=== PATIENT | male | born 1970 | race Caucasian/White ===

== ENCOUNTER 2024-01-24 16:35 | Emergency (ER) | payer OTHER ==
[~2024-01-24] VITALS: Ht 177.8 cm; Wt 91.0 kg
[2024-01-24 17:00] VITALS: PULSE 90; RESP 12; O2SAT 99
[2024-01-24 18:07] LABS: Urine Bacteria None Seen /hpf (None Seen)
[2024-01-24 18:18] LABS: Urine Blood Negative /uL (Negative); Urine Clarity Clear (Clear); Urine Color Light-Yellow (Yellow); Urine Protein, UAD TRACE (Negative); Urine Specific Gravity 1.021 (1.001-1.035); Urine Urobilinogen Normal (Negative); Urine WBC <1 /hpf (0 - 3)
[2024-01-24 19:33] LABS: Basophils # (auto) 0.1 10 ^3/uL (0-0.2); Basophils % (auto) 0.4 % (0.0-2.0); Eosinophils # (auto) 0 10 ^3/uL (0-0.8); Eosinophils % (auto) 0.3 % (0.0-7.0); Hematocrit 47.5 % (41.0-53.0); Hemoglobin 16.1 g/dL (13.5-17.5); Lymphocytes # (auto) 1.5 10 ^3/uL (0.4-5.4); Mean Corpuscular Hgb Conc. 33.9 g/dL (32.0-36.0); Mean Corpuscular Volume 85.7 fL (80.0-100.0); Monocytes % (auto) 5.9 % (0.0-12.0); Neutrophils # (auto) 14.1 10 ^3/uL (1.6-8.6); Neutrophils % (auto) 84.4 % (37.0-80.0); Nucleated Red Blood Cells % 0.1 %; Red Blood Cells 5.54 10^6/uL (4.5-5.90); Red Cell Distribution Width 13.4 % (11.8-14.3); White Blood Cell 16.7 10^3/uL (4.4-10.8)
[2024-01-24] MEDS: LORazepam 2MG/ML-1ML VIAL ONE (19:44)
[2024-01-24 19:48] LABS: Chloride 104 mmol/L (98-107); Potassium 4.1 mmol/L (3.5-5.1); Sodium 139 mmol/L (136-145)
[2024-01-24 19:49] LABS: Anion Gap 7 (5-15); Carbon Dioxide 28 mmol/L (20-30)
[2024-01-24 19:50] VITALS: PULSE 79; RESP 10; TEMP 98.4; O2SAT 98
[2024-01-24 19:50] LABS: Calcium 9.8 mg/dL (8.5-10.1)
[2024-01-24 19:54] LABS: BUN/Creatinine Ratio 15.4 (10.0-20.0); Blood Urea Nitrogen 19 mg/dL (9-23); Glucose 91 mg/dL (74-106)
[2024-01-24] MEDS: OXcarbazepine 300 MG TAB PO ONE (20:46)
[2024-01-24] MEDS: LIDOCAINE VISCOUS 2% 15ML UD PO ONE (21:28)
[2024-01-24] MEDS: LIDOCAINE HCL 1 % PF INJ 2ML AMP IJ ONE (21:29)
[2024-01-24] MEDS: LIDOCAINE 1% HCL (LOCAL ANESTH.) INJ 20ML MDV ONE (21:29)
[2024-01-24] MEDS ORDERED: IBUP-1455 PO (21:46)
[2024-01-24] MEDS ORDERED: CLIN-203 PO (21:46)
[2024-01-24 21:55] VITALS: BP 110/69; PULSE 80; RESP 15; O2SAT 99
== END 2024-01-24 22:02 | disposition home or self-care (01) ==
LOC: EDBD 16:35 → ER 16:44
DX: S01.512A Laceration without foreign body of oral cavity, initial encounter (principal); R56.9 Unspecified convulsions; Z79.1 Long term (current) use of non-steroidal anti-inflammatories (NSAID); Z98.890 Other specified postprocedural states; V89.2XXA Person injured in unspecified motor-vehicle accident, traffic, initial encounter; Y93.89 Activity, other specified; Y92.410 Unspecified street and highway as the place of occurrence of the external cause; Y99.8 Other external cause status
CPT/HCPCS: 36415; 41252; 70450; 80048; 81001; 84484; 85025; 99285; J2001; J2060; 12013